=== PATIENT | male | born 1965 | race Caucasian/White ===

== ENCOUNTER 2018-02-10 14:40 | Emergency (ER) | payer MEDICAID ==
[2018-02-10 15:03] VITALS: BP 148/101
--- NOTE | 2018-02-10 15:58 | ED Physician Documentation ---
PD HPI UPPER EXT INJURY - Stated complaint Stated Complaint: R WRIST INJ - Chief complaint Chief Complaint: Heent - History obtained from History obtained from: Patient - History of Present Illness Location: Right, Wrist (He was cleaning his own gutters at home about a month ago and fell off a ladder, about 8 foot fall and has persistent pain over the distal radius and thumb side of the wrist. No other injuries.) Review of Systems Constitutional: reports: Reviewed and negative Nose: reports: Reviewed and negative Throat: reports: Reviewed and negative PD PAST MEDICAL HISTORY - Past Medical History Past Medical History: No - Past Surgical History Past Surgical History: No - Present Medications Home Medications: Ambulatory Orders Medication Instructions Recorded Confirmed Hydrocodone/Acetaminophen 1 - 2 each PO Q6H PRN #14 tablet 02/10/18 [Hydrocodon-Acetaminophen 5-325] - Allergies Allergies/Adverse Reactions: Allergies Allergy/AdvReac Type Severity Reaction Status Date / Time Penicillins Allergy Unknown Verified 02/10/18 15:03 Sulfa (Sulfonamide Allergy Rash Verified 02/10/18 15:03 Antibiotics) - Social History Does the pt smoke?: Yes Smoking Status: Current every day smoker Does the pt drink ETOH?: Yes Does the pt have substance abuse?: No - Immunizations Immunizations are current?: Yes PD ED PE NORMAL - Vitals Vital signs reviewed: Yes - General General: Alert and oriented X 3, No acute distress - Extremities Extremities: Other (Right wrist, mild tenderness over the distal radius, none over the snuffbox or metacarpal of the thumb. No carpal tenderness. Some limited range of motion in flexion extension but normal neurovascular status in the digits.) - Neuro Neuro: Alert and oriented X 3, Normal speech Results - Vitals Vitals: Vital Signs - 24 hr 02/10/18 15:01 Temperature 36 C L Heart Rate 98 Respiratory 16 Rate Blood Pressure 148/101 H O2 Saturation 99 Oxygen O2 Source Room air - Rads (name of study) R wrist 4v Radiology: EMP read contemporaneously (Mildly displaced extra-articular avulsion fracture off the radial styloid) Procedures - Splint (location) R wrist Splint applied by: Physician Type of splint: Fiberglass, Short arm, Thumb spica Other: Patient tolerated well, No complications, Neurovascular intact PD MEDICAL DECISION MAKING - Sepsis Event Vital Signs: Vital Signs - 24 hr 02/10/18 15:01 Temperature 36 C L Heart Rate 98 Respiratory 16 Rate Blood Pressure 148/101 H O2 Saturation 99 Oxygen O2 Source Room air Departure - Departure Disposition: 01 Home, Self Care Clinical Impression: Fracture of right distal radius Condition: Good Record reviewed to determine appropriate education?: Yes Instructions: ED Fx Forearm Radius Ulna No Redu Requ Follow-Up: [facility] [Provider Group] - Within 1 week Prescriptions: Hydrocodone/Acetaminophen [Hydrocodon-Acetaminophen 5-325] 1 - 2 each PO Q6H PRN #14 tablet PRN Reason: pain Comments: Keep the splint on and dry. Call the orthopedics office today or tomorrow for an appointment within the week. Return if worse. Your blood pressure was elevated today on check into the emergency department. This does not mean that you have hypertension, it is a common phenomenon to come to the emergency department and have elevated blood pressure. I recommend that you see your primary care physician within the week to have it rechecked when you are feeling better. Do not drink or drive while taking narcotic pain medication. Note that many narcotic pain relievers also contain Tylenol/acetaminophen. Please ensure that your total dose of acetaminophen from all sources does not exceed 3 g (3000 mg) per day. You may get constipated while on this medication. Take a stool softener such as Colace twice a day while you are on it. Also add an clfv-ran-kyhvzwg laxative such as senna or MiraLAX on any day that you do not have a bowel movement. If you received a narcotic pain medication or sedative while in the emergency department, do not drive for the next 24 hours. Discharge Date/Time: 02/10/18 16:30
--- NOTE | 2018-02-10 16:45 | XRAY Report ---
Reason: wrist inj Procedure Date: 02/10/2018 Accession Number: [id number] / [id number] Procedure: XR - Wrist 4 View RT CPT Code: FULL RESULT: EXAM: RIGHT WRIST RADIOGRAPHY EXAM DATE: 02/10/2018 04:20 PM. CLINICAL HISTORY: Pain since fall from ladder one month ago. COMPARISON: None. TECHNIQUE: 4 views. FINDINGS: Bones: Semilunar calcification next to the radial styloid. No other traumatic or destructive bony abnormalities. Joints: Degenerative narrowing and spurring at the second MCP joint. No subluxations. Soft Tissues: Associated soft tissue swelling. IMPRESSION: 1. Mildly displaced extra-articular avulsion off the radial styloid. 2. 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 RADIA
== END 2018-02-10 16:30 | disposition home or self-care (01) ==
LOC: ED 14:40
DX: S52.501A Unspecified fracture of the lower end of right radius, initial encounter for closed fracture (principal); W11.XXXA Fall on and from ladder, initial encounter; Y93.H9 Activity, other involving exterior property and land maintenance, building and construction; Y92.007 Garden or yard of unspecified non-institutional (private) residence as the place of occurrence of the external cause; R03.0 Elevated blood-pressure reading, without diagnosis of hypertension; F17.200 Nicotine dependence, unspecified, uncomplicated
CPT/HCPCS: 29125; 99281; 99283

== ENCOUNTER 2018-07-27 12:06 | Outpatient (CLI) | payer MEDICAID | END 2018-07-27 12:07 | disposition home or self-care (01) | LOC: DI 12:06 | PROVIDERS: ATTEND Physician Assistant Medical | DX: J20.9 Acute bronchitis, unspecified (principal) ==

== ENCOUNTER 2018-07-29 13:07 | Outpatient (CLI) | payer MEDICAID ==
[2018-07-29 17:37] LABS: BASOPHILS % (AUTO) 0.3 %; EOSINOPHILS # (AUTO) 0.3 10^3/uL (0.0-0.7); EOSINOPHILS % (AUTO) 1.7 %; HGB - HEMOGLOBIN 15.4 g/dL (14.0-18.0); LYMPHOCYTES # (AUTO) 12.3 10^3/uL (1.5-3.5); LYMPHOCYTES % (AUTO) 71.1 %; MEAN CORPUSCULAR HEMOGLOBIN 28.5 pg (27.0-31.0); MEAN CORPUSCULAR HGB CONC 32.6 g/dL (32.0-36.0); MEAN CORPUSCULAR VOLUME 87.4 fL (80.0-94.0); MEAN PLATELET VOLUME 7.9 fL (7.4-11.4); MONOCYTES # (AUTO) 1.8 10^3/uL (0.0-1.0); MONOCYTES % (AUTO) 10.3 %; NEUTROPHILS # (AUTO) 2.9 10^3/uL (1.5-6.6); NEUTROPHILS % (AUTO) 16.6 %; PLT - PLATELET COUNT 411 10^3/uL (130-450); RED CELL DISTRIBUTION WIDTH 14.4 % (12.0-15.0); WHITE BLOOD COUNT 17.2 x10^3/uL (4.8-10.8)
[2018-07-29 18:01] LABS: ALBUMIN 3.3 g/dL (3.2-5.5); ALBUMIN/GLOBULIN RATIO 0.8 (1.0-2.2); ALKALINE PHOSPHATASE 284 IU/L (42-121); ALT ALANINE AMINOTRANSFERASE 95 IU/L (10-60); AST ASPARTATE AMINOTRANSFERASE 49 IU/L (10-42); BILIRUBIN,TOTAL 0.7 mg/dL (0.2-1.0); BUN - BLOOD UREA NITROGEN 15 mg/dL (6-20); CALCIUM 8.5 mg/dL (8.5-10.3); CARBON DIOXIDE - CO2 27 mmol/L (21-32); CHLORIDE 99 mmol/L (101-111); CHOL/HDL RATIO 5.6 (<5.0); CHOLESTEROL 175 mg/dL; CREATININE 0.7 mg/dL (0.6-1.2); GFR - MDRD 118 (>89); GLUCOSE 98 mg/dL (70-100); HDL CHOLESTEROL 31 mg/dL; LDL CHOLESTEROL,CALCULATED 99 mg/dL; LDL/HDL RATIO 3.2 (<3.6); SODIUM 134 mmol/L (135-145); TOTAL PROTEIN 7.4 g/dL (6.7-8.2); VLDL CHOLESTEROL 45 mg/dL
[2018-07-29 20:50] LABS: RBC MORPHOLOGY (MULTIPLE) 1+ SPHEROCYTES (NORMAL)
[2018-07-29 20:51] LABS: PLATELET ESTIMATE, MANUAL NORMAL (130-450,000) (NORMAL); PLATELET MORPHOLOGY NORMAL APPEARANCE (NORMAL)
[2018-07-29 21:00] LABS: DIFFERENTIAL COMMENT MANUAL=AUTO DIFF
[2018-07-30 13:38] LABS: HEPATITIS C ANTIBODY NON-REACTIVE (NON-REACTIVE)
[2018-07-31 13:27] LABS: HSV 1 IGG TYPE SPECIFIC AB <0.90 index; HSV 2 IGG TYPE SPECIFIC AB 5.14 index
[2018-08-01 16:11] LABS: HIV AG/AB 4TH GEN REPEATEDLY REACTIVE (NON-REACTIVE)
== END 2018-07-29 13:08 | disposition home or self-care (01) ==
LOC: LAB.F 13:07
PROVIDERS: ATTEND Physician Assistant Medical
DX: Z00.00 Encounter for general adult medical examination without abnormal findings (principal); Z12.5 Encounter for screening for malignant neoplasm of prostate; Z20.2 Contact with and (suspected) exposure to infections with a predominantly sexual mode of transmission
CPT/HCPCS: 36415; 80050; 80061; 81599; 83721; 84153; 86592; 86695; 86696; 86803; 87389

== ENCOUNTER 2018-11-10 15:27 | Outpatient (CLI) | payer MEDICAID ==
--- NOTE | 2018-11-11 17:00 | XRAY Report ---
Reason: WRIST PAIN,RIGHT Procedure Date: 11/10/2018 Accession Number: [id number] / [id number] Procedure: WCP - Wrist 3 View RT CPT Code: FULL RESULT: EXAM: RIGHT WRIST RADIOGRAPHY EXAM DATE: 11/10/2018 03:34 PM. CLINICAL HISTORY: WRIST Pain, right. COMPARISON: None. TECHNIQUE: 3 views. FINDINGS: Bones: No fractures or bone lesions. Joints: Early right first metacarpal carpal degenerative changes. No subluxations. Soft Tissues: No soft tissue swelling. IMPRESSION: Early right wrist degenerative change without superimposed acute findings. RADIA
== END 2018-11-10 15:28 | disposition home or self-care (01) ==
LOC: DI.WCP 15:27
PROVIDERS: ATTEND Physician Assistant Medical
DX: M19.031 Primary osteoarthritis, right wrist (principal)

== ENCOUNTER 2019-04-06 07:29 | Emergency (ER) | payer MEDICAID ==
--- NOTE | 2019-04-06 08:10 | ED Physician Documentation ---
History of Present Illness - Stated complaint Stated Complaint: LT SIDE FACIAL SWELLING - Chief complaint Chief Complaint: General - Additonal information Additional information: This is a 53-year-old male who presents with pain and swelling from his nasal bridge to his left eye. Patient was walking through some brush about 3 days ago when he scratched his nasal bridge he does not think that he significantly scratched his left eye. He had a wound on his nasal bridge which became more red over the last several days and this morning woke up with swelling around the left eye. He is able to open his eye despite eyelid being swollen, and he states his vision appears normal to him. He denies pain with eye movement. No fever. Review of Systems Constitutional: denies: Fever Eyes: reports: Other (Swelling around the eye). denies: Loss of vision Skin: reports: Lesions Immunocompromised: denies: Immunocompromised PD PAST MEDICAL HISTORY - Past Medical History Other Past Medical History: Pt denies medical history - Past Surgical History Past Surgical History: No - Present Medications Home Medications: Ambulatory Orders Medication Instructions Recorded Confirmed Clindamycin HCl [Clindamycin 150MG 450 mg PO TID 7 Days #63 capsule 04/06/19 CAP] - Allergies Allergies/Adverse Reactions: Allergies Allergy/AdvReac Type Severity Reaction Status Date / Time Penicillins Allergy Unknown Verified 04/06/19 07:38 Sulfa (Sulfonamide Allergy Rash Verified 04/06/19 07:38 Antibiotics) - Social History Does the pt smoke?: Yes Smoking Status: Current every day smoker Does the pt drink ETOH?: Yes Does the pt have substance abuse?: No - Immunizations Immunizations are current?: Yes - POLST Patient has POLST: No PD ED PE NORMAL - General General: Alert and oriented X 3 - HEENT HEENT: Other (There is a shallow Abrasion on the nasal bridge with surrounding erythema extending 1 to 2 cm from the margin of the 1 cm diameter abrasion. There is edema of the upper and lower eyelid on the left. Patient is able to open his eye, sclera appeared normal without injection, pupils equal round reactive to light, extraocular movements are intact bilaterally and painless.Fluorescein staining reveals no areas of focal uptake.) - Neck Neck: Supple, no meningeal sign - Cardiac Cardiac: RRR - Respiratory Respiratory: No respiratory distress - Abdomen Abdomen: Non distended - Extremities Extremities: No deformity - Neuro Neuro: Alert and oriented X 3 Results - Vitals Vitals: Vital Signs - 24 hr 04/06/19 04/06/19 07:35 08:22 Temperature 36.7 C 37.4 C Heart Rate 101 H 93 Respiratory 20 14 Rate Blood Pressure 144/88 H 130/97 H O2 Saturation 98 97 Oxygen O2 Source Room air - Labs Labs: Laboratory Tests 04/06/19 04/06/19 08:32 08:32 WBC 10.0 RBC 5.01 Hgb 14.9 Hct 45.1 MCV 90.0 MCH 29.7 MCHC 33.0 RDW 13.4 Plt Count 298 MPV 8.6 Neut # (Auto) 6.0 Lymph # (Auto) 2.6 Mccracken # (Auto) 1.1 H Eos # (Auto) 0.3 Baso # (Auto) 0.0 Absolute Nucleated RBC 0.00 Nucleated RBC % 0.0 Sodium 137 Potassium 4.7 Chloride 101 Carbon Dioxide 29 Anion Gap 7.0 BUN 19 Creatinine 0.8 Estimated GFR (MDRD) 101 Glucose 112 H Calcium 8.9 PD MEDICAL DECISION MAKING - ED course Complexity details: considered differential (Cellulitis, periorbital cellulitis, orbital cellulitis is, abrasion, Corneal abrasion) ED course: On exam patient appears to have some periorbital cellulitis, he has no pain with range of motion of his eyes, no proptosis, no ophthalmoplegia, and his vision is normal. No signs of orbital cellulitis at this time. He does not have signs of a corneal abrasion on fluorescein staining. Labs are drawn, and are unremarkable with no leukocytosis. Patient was given a dose of IV clindamycin. We will start him on oral clindamycin, and I instructed him to Follow-up with his primary care provider or return here for recheck within 24 hours to ensure that he is having improvement. I also reviewed return precautions that would mandate sooner return to the emergency department. Patient is in agreement and was discharged home. Departure - Departure Disposition: 01 Home, Self Care Clinical Impression: Preseptal cellulitis of left eye Condition: Good Instructions: ED Cellulitis Kecia Orbital Follow-Up: Jennie Chou PA-C [Primary Care Provider] - Tomorrow Prescriptions: Clindamycin HCl [Clindamycin 150MG CAP] 450 mg PO TID 7 Days #63 capsule Comments: You appear to have an infection in the soft tissues of your nose and around her left eye. Please take the antibiotic as prescribed and get a recheck within 24 hours. If you are unable to be seen by your primary care provider, you may return to the emergency department for recheck. If you develop pain with movement of your eye, vision changes, or fever, return to the emergency department. You may take Tylenol and ibuprofen for discomfort
[2019-04-06] MEDS ORDERED: CLINDAMYCIN 600 MG/50 ML 50 ML IV ONE (08:20)
[2019-04-06] MEDS ORDERED: PROPARACAINE 0.5% OPHTH DROPS 15 ML EACHEYE STA (08:21)
[2019-04-06 08:40] LABS: BASOPHILS % (AUTO) 0.3 %; EOSINOPHILS # (AUTO) 0.3 10^3/uL (0.0-0.7); EOSINOPHILS % (AUTO) 2.9 %; HGB - HEMOGLOBIN 14.9 g/dL (14.0-18.0); LYMPHOCYTES # (AUTO) 2.6 10^3/uL (1.5-3.5); LYMPHOCYTES % (AUTO) 25.8 %; MEAN CORPUSCULAR HEMOGLOBIN 29.7 pg (27.0-31.0); MEAN PLATELET VOLUME 8.6 fL (7.4-11.4); MONOCYTES # (AUTO) 1.1 10^3/uL (0.0-1.0); MONOCYTES % (AUTO) 10.6 %; NEUTROPHILS % (AUTO) 59.8 %; PLT - PLATELET COUNT 298 10^3/uL (130-450); RED BLOOD COUNT 5.01 10^6/uL (4.70-6.10); RED CELL DISTRIBUTION WIDTH 13.4 % (12.0-15.0)
[2019-04-06 08:50] LABS: CALCIUM 8.9 mg/dL (8.5-10.3); CREATININE 0.8 mg/dL (0.6-1.2)
[2019-04-06 10:13] VITALS: BP 130/98
[2019-04-06] MEDS ORDERED: KETOROLAC 30 MG/ML VIAL IVP STA (10:13)
== END 2019-04-06 10:22 | disposition home or self-care (01) ==
LOC: ED 07:29
DX: L03.213 Periorbital cellulitis (principal); F17.200 Nicotine dependence, unspecified, uncomplicated
CPT/HCPCS: 36415; 80048; 85025; 96365; 96375; 99284; J3490

== ENCOUNTER 2022-05-15 13:36 | Emergency (ER) | payer MEDICAID ==
[2022-05-15] MEDS ORDERED: CLINDAMYCIN 150 MG CAPSULE PO STA (18:43)
[2022-05-15] MEDS ORDERED: LIDOCAINE 1% 2 ML VIAL MC ONE (18:44)
[2022-05-15] MEDS ORDERED: HYDROcod/ACETAM 5/325 MG TABLET PO STA (18:44)
[2022-05-15] MEDS ORDERED: cefTRIAXone 1 GM VIAL IM STA (18:44)
--- NOTE | 2022-05-15 18:47 | ED Physician Documentation ---
History of Present Illness - Stated complaint Stated Complaint: L ARM PX,SWELLING - Chief complaint Chief Complaint: Wound - History obtained from History obtained from: Patient - History of Present Illness Pain level max: 6 Pain level now: 4 - Additonal information Additional information: Patient is a 56-year-old male who presents to the emergency department with swelling to the left forearm as well as the upper and lower lip. History of cellulitis in the past. States that this feels similar. He states that he works construction. No fevers. No chills. Worse with movement, better with rest. Does not recall any specific injuries. Denies any IV drug use. Review of Systems Constitutional: denies: Fever, Chills GI: denies: Vomiting, Diarrhea Skin: denies: Rash Musculoskeletal: denies: Neck pain, Back pain Neurologic: denies: Headache PD PAST MEDICAL HISTORY - Past Medical History Past Medical History: Yes Cardiovascular: None Respiratory: None Neuro: None Endocrine/Autoimmune: None GI: None : None HEENT: None Psych: None Musculoskeletal: None Derm: None - Past Surgical History Past Surgical History: No - Present Medications Home Medications: Ambulatory Orders Medication Instructions Recorded Confirmed HYDROcod/ACETAM 5/325 [[place] 5/325] 1 - 2 ea PO Q6H PRN #14 tablet 05/15/22 clindamycin HCL [Cleocin HCl] 300 mg PO Q6H #40 cap 05/15/22 - Allergies Allergies/Adverse Reactions: Allergies Allergy/AdvReac Type Severity Reaction Status Date / Time Penicillins Allergy Unknown Verified 04/06/19 07:38 Sulfa (Sulfonamide Allergy Rash Verified 04/06/19 07:38 Antibiotics) - Social History Does the pt smoke?: Yes Smoking Status: Current every day smoker Does the pt drink ETOH?: Yes Does the pt have substance abuse?: Yes Substance Use and Type: Marijuana - Immunizations Immunizations are current?: Yes - POLST Patient has POLST: No PD ED PE NORMAL - Vitals Vital signs reviewed: Yes - General General: Alert and oriented X 3, No acute distress, Well developed/nourished - HEENT HEENT: Moist mucous membranes, Other (Mild erythema and swelling to the upper and lower lips. No drainage. No abscess. Poor dentition throughout) - Neck Neck: Supple, no meningeal sign - Cardiac Cardiac: RRR, No murmur, Strong equal pulses - Respiratory Respiratory: No respiratory distress, Clear bilaterally - Abdomen Abdomen: Normal bowel sounds, Soft, Non tender, Non distended - Derm Derm: Warm and dry - Extremities Extremities: Other (Mild erythema and swelling to the left forearm. No abscess. No crepitus. Normal range of motion of the hand and fingers without pain.) - Neuro Neuro: Alert and oriented X 3 - Psych Psych: Normal mood, Normal affect Results - Vitals Vitals: Vital Signs - 24 hr 05/15/22 05/15/22 05/15/22 13:46 17:16 19:15 Temperature 37.0 C 36.4 C L 37.2 C Heart Rate 94 89 88 Respiratory 20 18 16 Rate Blood Pressure 150/91 H 140/100 H 154/104 H O2 Saturation 94 96 100 Oxygen O2 Source Room air PD Medical Decision Making - ED course Complexity details: considered differential, d/w patient ED course: Patient with mild cellulitis of the left forearm and a cellulitis of the upper and lower lips. No abscess to drain. No evidence of necrotizing infection. We will place on antibiotics and have him follow-up with his doctor closely for further care. No evidence of sepsis. Patient is well-appearing, nontoxic. Afebrile. Denies any drug use. Patient counseled regarding signs and symptoms for which I believe and urgent re-evaluation would be necessary. Patient with good understanding of and agreement to plan and is comfortable going home at this time This document was made in part using voice recognition software. While efforts are made to proofread this document, sound alike and grammatical errors may occur. Departure - Departure Disposition: 01 Home, Self Care Clinical Impression: Cellulitis Qualifiers: Site of cellulitis: unspecified site Qualified Code(s): L03.90 - Cellulitis, unspecified Condition: Good Instructions: ED Infec Skin Cellulitis Follow-Up: Jennie Chou PA-C [Primary Care Provider] - Within 1 week Prescriptions: clindamycin HCL [Cleocin HCl] 300 mg PO Q6H #40 cap HYDROcod/ACETAM 5/325 [[place] 5/325] 1 - 2 ea PO Q6H PRN #14 tablet PRN Reason: Pain Comments: Please take all antibiotics until gone. Please follow-up with your doctor in about 3 days for a wound check. Please return here if you have increasing redness, swelling, drainage or fevers. You should start to notice improvement within the next 24 hours. Your prescriptions were sent to [facility] in [place]. I am prescribing a short course of narcotic pain medication for you. These are potentially dangerous and addictive medications that should be used carefully. These medications may constipate you. Take an flhj-ycc-kyqcxtq stool softener (docusate) twice daily with plenty of water while taking these medications. If you go 24 hours without a bowel movement, take uxaw-vow-itxlzft miralax, per package instructions. Do not drink or drive while taking these medications. If you received narcotic or sedating medications while in the emergency depar tme, do not drive for 24 hours. Store this medication in a safe, secure place and out of reach of children. It is a violation of federal law to give or sell this medication to another person or to use in a manner other than prescribed. The ED will not refill narcotic prescriptions, including prescriptions lost or stolen. To dispose of unwanted medications: 1. [facility] at [address] in [place] has a medication drop box. They accept prescription medications (in pill form) Saturday through Saturday 9:00 a.m. to 5:00 p.m. 2. The [facility] [employer] accepts prescription medications (in pill form only) for disposal year round. Call for more information. 3. Contact the [facility] for the next [facility] sponsored prescription drug collection event. , [phone], or [phone]; Discharge Date/Time: 05/15/22 19:16
[2022-05-15 19:16] VITALS: BP 154/104
== END 2022-05-15 19:16 | disposition home or self-care (01) ==
LOC: ED 13:36
DX: K13.0 Diseases of lips (principal); L03.114 Cellulitis of left upper limb; F17.200 Nicotine dependence, unspecified, uncomplicated
CPT/HCPCS: 99283; A9270

== ENCOUNTER 2023-10-18 07:00 | Outpatient (CLI) | payer MEDICAID ==
--- NOTE | 2023-10-20 16:07 | XRAY Report ---
PROCEDURE: Chest 2V INDICATIONS: COUGH TECHNIQUE: 2 views of the chest were acquired. COMPARISON: Chest radiograph on March 14, 2016. FINDINGS: Surgical changes and devices: None. Lungs and pleura: No pleural effusions or pneumothorax. Mild bilateral perihilar bronchial wall thic kening. No focal pulmonary consolidation. Mediastinum: Mediastinal contours appear normal. Descending thoracic aorta is tortuous. Heart size is normal. Bones and chest wall: No suspicious bony lesions. Overlying soft tissues appear unremarkable. Mild degenerative changes of the spine. IMPRESSION: Mild bilateral perihilar bronchial wall thickening which may be secondary to viral pneumonia versus r eactive airways disease. No focal pulmonary consolidation. Reviewed by: Martín Canas MD on 10/20/2023 4:06 PM PDT Approved by: Martín Canas MD on 10/20/2023 4:06 PM PDT Station ID: [id number]
== END 2023-10-18 23:59 | disposition home or self-care (01) ==
LOC: DI.S 07:00
PROVIDERS: ATTEND Internal Medicine
DX: R05.9 Cough, unspecified (principal)